=== PATIENT | male | born 1935 | race Caucasian/White ===

== ENCOUNTER → 2017-03-02 | Outpatient (CLI) | payer MEDICARE ==
--- NOTE | 2017-03-02 15:48 | US ---
EXAMINATION TYPE: US kidneys/renal and bladder DATE OF EXAM: 03/02/2017 3:24 PM COMPARISON: NONE CLINICAL HISTORY: N18.9 Renal Insufficiency. EXAM MEASUREMENTS: Right Kidney: 9.1 x 4.9 x 5.4 cm Left Kidney: 10.7 x 5.6 x 5.8 cm Right Kidney: No hydronephrosis or masses seen Left Kidney: 2 simple appearing cysts: upper 4.3 x 2.8 x 3.4 cm; mid 1.6 x 1.7 x 1.7 cm Bladder: not well distended Bilateral Jets seen: no There is no evidence for hydronephrosis at this point in time. No nephrolithiasis is seen. No sylvia rning solid or cystic masses are identified. 2 simple appearing cysts in left kidney are marked by te chnologist. The urinary bladder is not greatly distended but no suspicious intraluminal mass or wall thickening is seen. Bilateral ureteral jets are not identified. IMPRESSION: No hydronephrosis is evident bilaterally.
== END | disposition home or self-care (01) ==
LOC: RADUSWWP 14:59
PROVIDERS: ATTEND Internal Medicine
DX: N28.9 Disorder of kidney and ureter, unspecified (principal)
CPT/HCPCS: 76770

== ENCOUNTER 2018-07-24 10:23 | Day surgery (SDC) | payer MEDICARE ==
[2018-07-19 13:05] VITALS: BMI 27.3
[~2018-07-24 10:23] MED LIST: DEXAMETHASONE SOD PHOSPHATE 10 MG/ML 1 ML VIAL IV ONE; HEPARIN SODIUM,PORCINE 5,000 UNIT/ML 1 ML VIAL SQ ONE; LACTATED RINGERS 1,000 ML IV SCH; LIDOCAINE 1% 20 ML VIAL (10MG/ML) FOR IV START INTRADERMA PRN; MIDAZOLAM 2 MG/2 ML VIAL IV PRN; ONDANSETRON 4 MG/2 ML VIAL IVP ONE; Pre Op ABX Message 1 EACH MISC MISCELLANE ONE; fentaNYL (PF) 50 MCG/ML 2 ML AMP IV PRN
[2018-07-24 11:27] VITALS: RESP 16; TEMP 97.1
[2018-07-24] MEDS ORDERED: DEXAMETHASONE SOD PHOSPHATE 10 MG/ML 1 ML VIAL IV ONE (11:40)
[2018-07-24] MEDS ORDERED: ONDANSETRON 4 MG/2 ML VIAL IVP ONE (11:40)
--- NOTE | 2018-07-24 12:55 | P.GSHP ---
History of Present Illness H&P Date: 07/24/18 Chief Complaint: Left arm Lipoma This is a 83-year-old male who presents today for excision of a left arm lipoma. Patient opted for similar lipoma over his left upper arm. Past Medical History Past Medical History: Heart Failure, Hyperlipidemia, Hypertension, Osteoarthritis (OA), Renal Disease Additional Past Medical History / Comment(s): hx. anemia-iron infusions 2016, stage 4 kidney disease per pt. History of Any Multi-Drug Resistant Organisms: None Reported Past Surgical History: Coronary Bypass/CABG, Heart Catheterization, Orthopedic Surgery Additional Past Surgical History / Comment(s): quad bypass 1996, ORIF left ankle Past Anesthesia/Blood Transfusion Reactions: No Reported Reaction Smoking Status: Former smoker - Past Family History Sister(s) Family Medical History: Cancer Medications and Allergies Home Medications Medication Instructions Recorded Confirmed Type Allopurinol [Zyloprim] 200 mg PO DAILY 07/19/18 07/19/18 History Calcitriol 0.5 mcg PO SUTUTHSA 07/19/18 07/24/18 History Ergocalciferol (Vitamin D2) 50,000 unit PO Q30D 07/19/18 07/24/18 History [Drisdol] Ferrous Sulfate [Feosol] 325 mg PO DAILY 07/19/18 07/19/18 History Furosemide [Lasix] 20 mg PO DAILY 07/19/18 07/24/18 History Metoprolol Tartrate [Lopressor] 25 mg PO BID 07/19/18 07/24/18 History Nitroglycerin Sl Tabs [Nitrostat] 0.4 mg SUBLINGUAL Q5M PRN 07/19/18 07/19/18 History Simvastatin [Zocor] 40 mg PO HS 07/19/18 07/24/18 History Warfarin [Coumadin] 1.25 mg PO MOWEFR 07/19/18 07/19/18 History Warfarin [Coumadin] 2.5 mg PO SUTUTHSA 07/19/18 07/19/18 History Allergies Allergy/AdvReac Type Severity Reaction Status Date / Time No Known Allergies Allergy Verified 07/19/18 12:24 Surgical - Exam Vital Signs Temp Pulse Resp BP Pulse Ox 97.1 F L 79 16 124/77 100 07/24/18 11:26 07/24/18 11:26 07/24/18 11:26 07/24/18 11:26 07/24/18 11:26 - General well developed, no distress - Eyes PERRL - ENT normal pinna - Neck no masses - Respiratory normal expansion - Cardiovascular Rhythm: regular - Abdomen Abdomen: soft, non tender - Integumentary 4 cm left arm lipoma Assessment and Plan Assessment: (Lipoma. We will perform excision.
[2018-07-24] MEDS ORDERED: PROPOFOL 10 MG/ML 20 ML VIAL IV ONE (14:15)
[2018-07-24] MEDS ORDERED: LIDOCAINE 1% INJ 10MG/ML (20 ML MDV) ONE (14:15)
[2018-07-24] MEDS ORDERED: fentaNYL (PF) 50 MCG/ML 2 ML AMP ONE (14:15)
[2018-07-24] MEDS ORDERED: BUPIVACAIN-EPI 0.25%-1:200,000 30 ML VIAL SQ ONE ×2 (14:37)
[2018-07-24] MEDS ORDERED: SODIUM CHLORIDE 0.9% 50 ML with ceFAZolin 2,000 MG IV ONE ×2 (14:43)
[2018-07-24 15:46] VITALS: BP 134/86; PULSE 75
--- NOTE | 2018-07-25 11:46 | P.OP ---
Date of Procedure: 07/24/18 Preoperative Diagnosis: Left arm lipoma Postoperative Diagnosis: Left arm lipoma Procedure(s) Performed: Excision of left arm lipoma Anesthesia: MAC Surgeon: Jan Fagan Estimated Blood Loss (ml): 5 Pathology: other (Left arm lipoma) Condition: stable Disposition: PACU Description of Procedure: The patient's placed on the operative table in the supine position. He received IV sedation. His left arm was prepped and draped in usual sterile fashion. The skin at the lipoma site was anesthetized 1% local Xylocaine. Using a 15 blade in elliptical skin incision was made around the lipoma and then using electrocautery the subcutaneous tissues and fat were divided. The specimens of pathology. The wound was diaphoresis. There is no bleeding seen. The skin was closed interrupted 3-0 Monocryl suture. Dermabond was applied. Patient top she will was sent to recovery in stable condition.
--- NOTE | 2018-07-26 10:55 | CDI ---
Outpatient Documentation Clarification Form Date: 07/26/18 CDS/[place] Name: Lula Brown Phone: If any questions, call Nelly Avila Agronomy Technician at [phone] Patient Name: Mark Briones Admit Date: 07/24/18 Discharge Date: 07/24/18 ATTENTION: The [facility] Coding Staff appreciate your assistance in clarifying documentation. Please respond to the clarification below the line at the bottom and electronically sign. The [facility] Coding staff will review the response and follow-up if needed. Please note: Queries are made part of the Legal Health Record. If you have any questions, please contact the Agronomy Technician. Dear Dr. Fagan, What is the size of the lesion excision, in cm? Thank you for your kind consideration. The lesion was 5 x 3 cm. [facility] [facility]
== END 2018-07-24 16:08 | disposition home or self-care (01) ==
LOC: OR 10:23
PROVIDERS: ATTEND Surgery
DX: L72.0 Epidermal cyst (principal); I13.0 Hypertensive heart and chronic kidney disease with heart failure and stage 1 through stage 4 chronic kidney disease, or unspecified chronic kidney disease; N18.4 Chronic kidney disease, stage 4 (severe); I50.9 Heart failure, unspecified; E78.5 Hyperlipidemia, unspecified; M19.90 Unspecified osteoarthritis, unspecified site; D64.9 Anemia, unspecified; Z95.1 Presence of aortocoronary bypass graft; Z79.01 Long term (current) use of anticoagulants; Z79.899 Other long term (current) drug therapy; Z87.891 Personal history of nicotine dependence
CPT/HCPCS: 11406; 88304; J1644; J1100; J2405; J2001; J3010; J0690; J2704

== ENCOUNTER → 2019-01-04 | Outpatient (CLI) | payer MEDICARE ==
--- NOTE | 2019-01-05 06:57 | XR ---
EXAMINATION TYPE: XR chest 2V DATE OF EXAM: 01/04/2019 COMPARISON: Chest x-ray March 04, 2016. HISTORY: Shortness of breath. TECHNIQUE: Frontal and lateral views of the chest are obtained. FINDINGS: The cardiac silhouette size remains enlarged with atherosclerotic aorta. Post CABG changes with mediastinal clips and sternal wires is redemonstrated. There is new fairly moderate size left pleural effusion and associated left basilar atelectasis and/or infiltrate. No new mediastinal shift is seen. Right lung remains clear. There is tiny right pleural effusion. Background chronic emphysema tous change felt present. The osseous structures are intact. IMPRESSION: New fairly moderate size left pleural effusion and associated left basilar atelectasis a nd/or infiltrate. No new mediastinal shift is evident. Background chronic emphysematous change and ca rdiomegaly redemonstrated.
--- NOTE | 2019-01-05 06:58 | US ---
EXAMINATION TYPE: US chest DATE OF EXAM: 01/04/2019 COMPARISON: Same day chest x-ray CLINICAL HISTORY: J90 Pleural effusion. TECHNIQUE: Targeted ultrasound of the posterior lower bilateral hemithoraces EXAM MEASUREMENTS: Right Pleural Effusion pocket size: no sizable pocket seen Left Pleural Effusion pocket size: 11.0 cm Left skin surface to fluid distance: 1.8 cm Left side marked for possible thoracentesis outside the dept. 3 images right chest show no significant effusion. 5 images left chest show moderate size left pleura l effusion which correlates with recent x-ray. IMPRESSIONS: As above.
== END | disposition home or self-care (01) ==
LOC: RADUSWWP 16:42
PROVIDERS: ATTEND Internal Medicine Cardiovascular Disease
DX: J90 Pleural effusion, not elsewhere classified (principal); J43.9 Emphysema, unspecified; I51.7 Cardiomegaly
CPT/HCPCS: 71046; 76604

== ENCOUNTER → 2019-02-05 | Day surgery (SDC) | payer MEDICARE ==
[~2019-02-05] MED LIST changes: -DEXAMETHASONE SOD PHOSPHATE 10 MG/ML 1 ML VIAL IV ONE; -HEPARIN SODIUM,PORCINE 5,000 UNIT/ML 1 ML VIAL SQ ONE; -LACTATED RINGERS 1,000 ML IV SCH; -LIDOCAINE 1% 20 ML VIAL (10MG/ML) FOR IV START INTRADERMA PRN; -MIDAZOLAM 2 MG/2 ML VIAL IV PRN; -ONDANSETRON 4 MG/2 ML VIAL IVP ONE; -Pre Op ABX Message 1 EACH MISC MISCELLANE ONE; +SODIUM CHLORIDE 0.9% 500 ML 500 ML in EMPTY BAG 1 BAG IV PRN; -fentaNYL (PF) 50 MCG/ML 2 ML AMP IV PRN
[2019-02-05 12:03] VITALS: BP 110/65; PULSE 74; RESP 18; TEMP 97.7
[2019-02-05 12:19] LABS: Prothrombin Time 19.8 sec (9.0-12.0)
== END ==
LOC: PROCWHC3 11:39
PROVIDERS: ATTEND Internal Medicine Critical Care Medicine
DX: J90 Pleural effusion, not elsewhere classified (principal); Z53.8 Procedure and treatment not carried out for other reasons
CPT/HCPCS: 36415; 85610

== ENCOUNTER → 2019-02-06 | Day surgery (SDC) | payer MEDICARE ==
[2019-02-06 11:51] VITALS: RESP 16; TEMP 97.6
--- NOTE | 2019-02-06 13:02 | XR ---
EXAMINATION TYPE: XR chest 1V portable DATE OF EXAM: 02/06/2019 HISTORY: Status post thoracentesis COMPARISON: 01/31/2019 TECHNIQUE: Single view of the chest is submitted. FINDINGS: No evidence for left-sided pneumothorax. Significant diminution in left-sided pleural effusion with mild residual noted. The heart is stable. Hilar and mediastinal structures are within normal limits. Degenerative changes are seen of the dorsal spine. IMPRESSION: 1. No evidence for pneumothorax at this time.
--- NOTE | 2019-02-06 13:15 | PCN ---
PROCEDURE NOTE PREOPERATIVE DIAGNOSIS: Left-sided pleural effusion. POSTOPERATIVE DIAGNOSIS: Left-sided pleural effusion. PROCEDURE: Thoracentesis Indication Pleural effusion. A time-out was completed verifying correct patient, procedure, site, positioning , and implant (s) or special equipment if applicable. Ultrasound guidance was not used and appropriate fluid pocket was identified and marked. Patient was positioned, prepped and draped in usual sterile fashion. Lidocaine was used to anesthetize the area. A Thoracentesis catheter was introduced into the pleural space and fluid was removed. Blood loss was none. A chest x-ray was ordered to evaluate for pneumothorax. Total Fluid Removed 1.3 L Color of Fluid Turbid, dark yellowish pleural effusion. Fluid sent for appropriate laboratory tests. Patient tolerated the procedure well and there were no complications. Chest x-rays to follow. MMODL / IJN: [id number] /
[2019-02-06 13:32] VITALS: BP 106/65; PULSE 72
[2019-02-06 22:05] LABS: Total Protein, Body Fluid 1615 mg/dL
== END ==
LOC: PROCWHC3 11:23
PROVIDERS: ATTEND Internal Medicine Critical Care Medicine
DX: J90 Pleural effusion, not elsewhere classified (principal)
CPT/HCPCS: 32554; 71045; 82945; 83615; 84157; 87070; 87075; 87205; 88108; 88305